=== PATIENT | male | born 1985 | race Caucasian/White ===

== ENCOUNTER 2016-12-08 18:04 | Emergency (ER) | payer BC, OTHER ==
--- NOTE | 2016-12-08 18:40 | CPEKG ---
Heart Rate: 67 RR Interval: 896 P-R Interval: 102 QRSD Interval: 68 QT Interval: 384 QTC Interval: 406 P Moon: 0 QRS Moon: 81 T Wave Moon: 71 EKG Severity - ABNORMAL ECG - EKG Impression: SINUS RHYTHM EKG Impression: SHORT DC INTERVAL, ACCELERATED AV CONDUCTION EKG Impression: ABNRM R PROG, CONSIDER ASMI OR LEAD PLACEMENT Electronically Signed By: Kalyan Conde 11-Dec-2016 17:58:46
--- NOTE | 2016-12-08 18:53 | EDPHY ---
H & P Time Seen by Provider: 12/08/16 18:49 HPI/ROS: HPI: This 31-year-old male who presents with Chief Complaint: Dizziness Location: Head Quality: Dizziness Duration: 1 hour prior to arrival Signs and Symptoms: No headache, no neck pain, no palpitations, no chest pain, no shortness of breath, no fever, no vertigo, + nausea, no vomiting, + questionable loss of consciousness, no abdominal pain Timing: Sudden, intermittent, lasting a few seconds Severity: Moderate Context: Patient states that 2-3 hours after eating breakfast this morning he was sitting down working on the computer, he stood up and became lightheaded and then "passed out." 2 hours later the same situation occurred again. This was a witnessed fall by his girlfriend. Patient relates that this is been happening to him over last 10 years but has never had an official workup or seen his primary care provider for it. Today was more concerning as he believes he may have actually lost consciousness. Denies recreational drug use. After further questioning patient admits that he does not eat food every day for unknown reasons. Modifying Factors: Comment: ROS: Eyes: No blurred vision Respiratory: No shortness of breath, no cough Cardiovascular: No chest pain Gastrointestinal: No nausea, no vomiting no diarrhea Genitourinary: No dysuria Extremities: No myalgias Neurologic: No weakness, no numbness Skin: No rashes Hematologic: No bruising, no bleeding Past Medical/Surgical History: Depression, attention deficit hyperactivity disorder, insomnia. Denies any surgical history. Social History: Currently employed. Lives with girlfriend. Smoking Status: Never smoked Physical Exam: CONSTITUTIONAL: Adult well-appearing white male, awake and alert, no obvious distress HEENT: Atraumatic and normocephalic, PERRL, EOMI. Tympanic membranes clear. . Oropharynx clear, no exudate and moist pink mucosa. Airway patent. No lymphadenopathy. NECK: Supple, no tenderness, full range of motion, No meningismus. Cardiovascular: Normal S1/S2, regular rate, regular rhythm, without murmur rub or gallop. PULMONARY/CHEST: Symmetrical and nontender. Clear to auscultation bilaterally Good air movement. No accessory muscle usage. ABDOMEN: Soft, nondistended, nontender, no rebound, no guarding, no peritoneal signs, no masses or organomegaly. No CVAT. EXTREMITIES: 2/2 pulses, no deformities, no clubbing, no cyanosis or edema. NEUROLOGICAL: no focal neuro deficits. GCS 15. Very slow speech pattern. Normal [id number]. Normal [id number]. Normal Romberg test. No dizziness reproduction with Colon-Hallpike maneuver PSYCH: Flat affect SKIN: Warm and dry, no erythema. no rash. Good capillary refill. Constitutional: Initial Vital Signs Temperature (C) 36.4 C 12/08/16 18:24 Heart Rate 66 12/08/16 18:24 Respiratory Rate 20 12/08/16 18:24 Blood Pressure 106/75 12/08/16 18:24 O2 Sat (%) 97 12/08/16 18:24 O2 Delivery Mode Room Air Allergies/Adverse Reactions: No Known Allergies Allergy (Unverified 12/08/16 18:23) Home Medications: Medication Instructions Recorded Ambien 12/08/16 Buspar (*) 12/08/16 Cymbalta 12/08/16 Dexedrine 12/08/16 GABAPENTIN 12/08/16 Medical Decision Making - Diagnostics EKG Interpretation: 12 lead EKG: Indication: syncope Rhythm: Normal sinus rhythm, rate 67 bpm Mchenry: Normal Intervals: Normal QRS: Normal ST segments: Nonspecific changes INTERPRETATION: Normal EKG. The 12 lead EKG was interpreted by myself. Imaging Results: Imaging Impressions Head CT 12/08/16 18:57 Impression: No acute intracranial findings. Findings discussed with Olga Lidia Cooney PA-C, 12/08/2016 at 1942 hours. ED Course/Re-evaluation: Head CT scan, labs, orthostatics, IV fluids, EKG, urinalysis, urine drug screen ordered EKG does not show any acute ischemic changes or heart block Given 1 L normal saline and IV Zofran Orthostatics normal 1940 called by radiologist Head CT scan scan shows no acute intracranial process Labs are grossly unremarkable except for serum glucose of 53 Patient has complete relief of symptoms with normal saline and orange juice Counseled patient to eat regular meals every few hours Differential Diagnosis: Dizziness including but not limited to peripheral and central causes of vertigo , orthostatic causes including dehydration, and blood loss. - Data Points Laboratory Results: Laboratory Results 12/08/16 18:43 12/08/16 18:43 12/08/16 12/08/16 12/08/16 18:43 18:43 18:43 WBC 5.77 10^3/uL 10^3/uL (3.80-9.50) RBC 5.31 10^6/uL 10^6/uL (4.40-6.38) Hgb 17.2 g/dL g/dL (13.7-17.5) Hct 49.6 % % (40.0-51.0) MCV 93.4 fL fL (81.5-99.8) MCH 32.4 pg pg (27.9-34.1) MCHC 34.7 g/dL g/dL (32.4-36.7) RDW 12.2 % % (11.5-15.2) Plt Count 234 10^3/uL 10^3/uL (150-400) MPV 9.8 fL fL (8.7-11.7) Neut % (Auto) 51.3 % % (39.3-74.2) Lymph % (Auto) 37.1 % % (15.0-45.0) Ransom % (Auto) 7.5 % % (4.5-13.0) Eos % (Auto) 2.3 % % (0.6-7.6) Baso % (Auto) 1.6 % % (0.3-1.7) Nucleat RBC Rel Count 0.0 % % (0.0-0.2) Absolute Neuts (auto) 2.97 10^3/uL 10^3/uL (1.70-6.50) Absolute Lymphs (auto) 2.14 10^3/uL 10^3/uL (1.00-3.00) Absolute Monos (auto) 0.43 10^3/uL 10^3/uL (0.30-0.80) Absolute Eos (auto) 0.13 10^3/uL 10^3/uL (0.03-0.40) Absolute Basos (auto) 0.09 10^3/uL 10^3/uL (0.02-0.10) Absolute Nucleated RBC 0.00 10^3/uL 10^3/uL (0-0.01) Immature Gran % 0.2 % % (0.0-1.1) Immature Gran # 0.01 10^3/uL 10^3/uL (0.00-0.10) D-Dimer < 0.27 ug/mLFEU ug/mLFEU (0.00-0.50) Sodium 143 mEq/L mEq/L (134-144) Potassium 4.0 mEq/L mEq/L (3.5-5.2) Chloride 104 mEq/L mEq/L (97-110) Carbon Dioxide 28 mEq/l mEq/l (22-31) Anion Gap 11 mEq/L mEq/L (8-16) BUN 21 mg/dL mg/dL (7-23) Creatinine 0.9 mg/dL mg/dL (0.7-1.3) Estimated GFR > 60 Glucose 53 mg/dL L mg/dL (70-100) Calcium 9.9 mg/dL mg/dL (8.5-10.4) Total Bilirubin 0.5 mg/dL mg/dL (0.1-1.4) AST 26 IU/L IU/L (17-59) ALT 29 IU/L IU/L (21-72) Alkaline Phosphatase 58 IU/L IU/L (38-126) Troponin I < 0.012 ng/mL ng/mL (0.000-0.034) Total Protein 7.8 g/dL g/dL (6.3-8.2) Albumin 4.8 g/dL g/dL (3.5-5.0) TSH 2.580 uIU/mL uIU/mL (0.465-4.680) Medications Given: Discontinued Medications Sodium Chloride (Ns) 1,000 mls @ 0 mls/hr IV EDNOW ONE; Wide Open PRN Reason: Protocol Stop: 12/08/16 18:56 Last Admin: 12/08/16 18:59 Dose: 1,000 mls Ondansetron HCl (Zofran) 4 mg IVP EDNOW ONE Stop: 12/08/16 19:00 Last Admin: 12/08/16 19:03 Dose: Not Given Departure - Departure Disposition: Home, Routine, Self-Care Clinical Impression: Dizziness, Low blood sugar reading Condition: Good Instructions: Non-diabetic Hypoglycemia (ED) Additional Instructions: Eat 5-6 small meals per day other than 3 large meals daily. Referrals: NONE *PRIMARY CARE P,. [Primary Care Provider] - As per Instructions [facility],. [Clinic] - 5-7 days, call for appt. (To establish primary care)
[2016-12-08] MEDS ORDERED: NS 1,000 ML IV ONE (18:55)
[2016-12-08 18:56] LABS: % IMMATURE GRANULYOCYTES 0.2 % (0.0-1.1); ABSOLUTE IMMATURE GRANULOCYTES 0.01 10^3/uL (0.00-0.10); ADD DIFF? NO; ADD MORPH? NO; ADD SCAN? NO; ATYPICAL LYMPHOCYTE FLAG 10 (0-99); FRAGMENT RBC FLAG 0 (0-99); HEMATOCRIT 49.6 % (40.0-51.0); HEMOGLOBIN 17.2 g/dL (13.7-17.5); LEFT SHIFT FLG 0 (0-99); LIPEMIA HEMOLYSIS FLAG 90 (0-99); MEAN CELL HEMOGLOBIN 32.4 pg (27.9-34.1); MEAN CELL HEMOGLOBIN CONCENTR. 34.7 g/dL (32.4-36.7); MEAN CELL VOLUME 93.4 fL (81.5-99.8); MEAN PLATELET VOLUME 9.8 fL (8.7-11.7); PLATELET CLUMPS FLAG 20 (0-99); PLATELET COUNT 234 10^3/uL (150-400); RED BLOOD CELL COUNT 5.31 10^6/uL (4.40-6.38); RED CELL DISTRIBUTION WIDTH 12.2 % (11.5-15.2)
[2016-12-08] MEDS ORDERED: ONDANSETRON 4 MG/2 ML VIAL IVP ONE (18:59)
[2016-12-08 19:10] LABS: ALANINE AMINOTRANSFERASE 29 IU/L (21-72); ALBUMIN 4.8 g/dL (3.5-5.0); ALKALINE PHOSPHATASE 58 IU/L (38-126); ANION GAP 11 mEq/L (8-16); ASPARTATE AMINOTRANSFERASE 26 IU/L (17-59); BILIRUBIN,TOTAL 0.5 mg/dL (0.1-1.4); CALCIUM 9.9 mg/dL (8.5-10.4); CARBON DIOXIDE 28 mEq/l (22-31); CHLORIDE 104 mEq/L (97-110); CREATININE 0.9 mg/dL (0.7-1.3); GLOMERULAR FILTRATION RATE > 60; GLUCOSE 53 mg/dL (70-100); SODIUM 143 mEq/L (134-144); TOTAL PROTEIN 7.8 g/dL (6.3-8.2)
[2016-12-08 19:21] LABS: TROPONIN I < 0.012 ng/mL (0.000-0.034)
[2016-12-08 20:32] VITALS: BP 109/71; PULSE 89; RESP 18; TEMP 98.2; O2SAT 96
== END 2016-12-08 21:06 | disposition home or self-care (01) ==
DX: R42 Dizziness and giddiness (principal); E16.2 Hypoglycemia, unspecified; E86.9 Volume depletion, unspecified